=== PATIENT | female | born 1945 | race Caucasian/White ===

== ENCOUNTER 2020-11-13 08:53 | Emergency (ER) | payer OTHER ==
[~2020-11-13] VITALS: Ht 160 cm; Wt 54.4 kg
[2020-11-13 08:53] VITALS: BP_SYST 153
--- NOTE | 2020-11-13 08:53 | NUR ---
Placed in room 8 . Placed on lunchroom monitor, blood pressure machine and pulse oximeter. To gown for exam. Side rails up.
--- NOTE | 2020-11-13 09:00 | NUR ---
PT BIB S/P SLIPPING AND FALLING WHILE WALKING OUTSIDE. FELL AND HIT FOREHEAD ON SIDEWALK. LAC TO FOREHEAD, NO BLEEDING UPON ARRIVAL +BARNES, DENIES KO. PT ARRIVES AAOX4, V/S STABLE
--- NOTE | 2020-11-13 09:15 | NUR ---
ER DR. CABRERA AT THE BEDSIDE EXAMINING PT
--- NOTE | 2020-11-13 09:25 | NUR ---
PORTABLE X-RAY AT THE BEDSIDE
[2020-11-13] MEDS ORDERED: ONDANSETRON 4 MG ODT TAB PO ONE (09:30)
[2020-11-13] MEDS ORDERED: ACETAMINOPHEN 500 MG TABLET PO ONE (09:30)
[2020-11-13] MEDS ORDERED: DIPH-TET-PERTUS Vaccine 0.5 ML VIAL (ADACEL) I.M. ONE (09:30)
--- NOTE | 2020-11-13 09:40 | NUR ---
Patient transported to radiology via WC, accompanied by STAFF.
[2020-11-13] MEDS ORDERED: BACITRACIN 1 GM OINT TP ONE (11:15)
--- NOTE | 2020-11-13 11:45 | NUR ---
Thumb Spica splint applied to LARM. 2+ pulse noted. Capillary refill <2 seconds. Patient has ability to move non-splinted digits. Has sensation present to affected site. Skin color within normal limits. Applied for pain management control.
--- NOTE | 2020-11-13 11:54 | NUR ---
PT UP AND AMBULATING WITHOUT ASSIST, STEADY GAIT, DENIES DIZZINESS, V/S STABLE
[2020-11-13] MEDS ORDERED: ONDA-8 TL (12:09)
[2020-11-13] MEDS ORDERED: SULF1TAB48 PO (12:09)
[2020-11-13 12:20] VITALS: BP_SYST 153
--- NOTE | 2020-11-13 12:22 | NUR ---
Patient given written and verbal discharge instructions and verbalizes understanding. ER MD discussed with patient the results and treatment provided. Patient in stable condition. ID arm band removed. Rx of BACTRIM AND ZOFRAN given. Patient educated on pain management and to follow up with PMD. Pain Scale 0/10. Opportunity for questions provided and answered. Medication side effect fact sheet provided.
== END 2020-11-13 12:22 | disposition home or self-care (01) ==
LOC: SED 08:53
DX: S06.0X0A Concussion without loss of consciousness, initial encounter (principal); S01.81XA Laceration without foreign body of other part of head, initial encounter; S80.211A Abrasion, right knee, initial encounter; S69.82XA Other specified injuries of left wrist, hand and finger(s), initial encounter; Z88.0 Allergy status to penicillin; Z79.899 Other long term (current) drug therapy; W01.198A Fall on same level from slipping, tripping and stumbling with subsequent striking against other object, initial encounter; Y93.89 Activity, other specified; Y92.89 Other specified places as the place of occurrence of the external cause; Y99.8 Other external cause status
CPT/HCPCS: 12013; 70450; 72125; 73140; 76376; 90471; 90715; 99285; Q0162

== ENCOUNTER 2020-11-16 16:22 | Emergency (ER) | payer OTHER ==
[~2020-11-16] VITALS: Ht 160 cm; Wt 54.4 kg
[~2020-11-16 16:22] MED LIST: ONDA-8 TL; SULF1TAB48 PO
[2020-11-16 16:35] VITALS: BP_SYST 143
[2020-11-16 20:51] LABS: BASOPHILS # (AUTO) 0.1 K/uL (0.0-0.2); EOSINOPHILS # (AUTO) 0.1 K/uL (0.0-0.4); EOSINOPHILS % (AUTO) 0.5 % (0.0-4.0)
[2020-11-16 21:07] LABS: BASOPHILS % (AUTO) 0.6 % (0.0-2.0); HEMATOCRIT 38.4 % (36-48); HEMOGLOBIN 12.6 g/dL (12.0-16.0); LYMPHOCYTES # (AUTO) 2.2 K/uL (1.0-5.5); MEAN CORPUSCULAR HEMOGLOBIN 29 pg (27-31); MEAN CORPUSCULAR HGB CONC 33 % (32-36); MEAN CORPUSCULAR VOLUME 88 fL (79.0-98.0); MONOCYTES # (AUTO) 0.7 K/uL (0.0-1.0); MONOCYTES % (AUTO) 5.9 % (1.7-9.3); NEUTROPHILS # (AUTO) 8.5 K/uL (1.8-7.7); PLATELET COUNT (AUTO) 456 K/uL (130-430); RED BLOOD CELL COUNT(AUTO) 4.36 MIL/uL (4.2-6.2); RED CELL DISTRIBUTION WIDTH 13.2 % (9.0-15.0); WHITE BLOOD COUNT (AUTO) 11.5 K/uL (4.8-10.8)
[2020-11-16 21:24] LABS: ANION GAP 8 (5-15); CALCIUM 9.5 mg/dL (8.4-11.0); CHLORIDE 98 mmol/L (98-107); GLUCOSE 115 mg/dL (70-99); POTASSIUM 3.9 mmol/L (3.5-5.1); SODIUM SERUM 132 mmol/L (136-145); UREA NITROGEN, BLOOD 12 mg/dL (8-21)
[2020-11-16 21:29] LABS: ALANINE AMINOTRANSFERASE 21 U/L (12-78); ALBUMIN 3.9 g/dL (3.4-4.8); ASPARTATE AMINOTRANSFERASE 19 U/L (10-37); LIPASE 129 U/L (73-393); TOTAL BILIRUBIN 0.6 mg/dL (0.0-1.0)
[2020-11-16 23:09] LABS: BILIRUBIN,URINE NEGATIVE (NEGATIVE); BLOOD, URINE NEGATIVE (NEGATIVE); CLARITY/URINE CLEAR (CLEAR); COLOR,URINE YELLOW (YELLOW); GLUCOSE,URINE NEGATIVE (NEGATIVE); KETONES,URINE NEGATIVE (NEGATIVE); LEUKOCYTE ESTERASE ,URINE NEGATIVE (NEGATIVE); NITRITE, URINE NEGATIVE (NEGATIVE); PROTEIN URINE NEGATIVE (NEGATIVE); UROBILINOGEN,URINE 0.2 (0.2-1.0)
[2020-11-17 00:24] LABS: FREE T4 (FREE THYROXINE) 1.1 ng/dl (0.8-1.5); THYROID STIMULATING HORMONE 1.16 uIu/mL (0.36-3.74)
[2020-11-17] MEDS ORDERED: METR500T PO (01:29)
[2020-11-17] MEDS ORDERED: POLY119P2 PO (01:29)
[2020-11-17] MEDS ORDERED: BISA10SU61 RC (01:29)
[2020-11-17 01:43] VITALS: BP_SYST 130
== END 2020-11-17 01:43 | disposition home or self-care (01) ==
LOC: SED 16:22
DX: R33.9 Retention of urine, unspecified (principal); K59.00 Constipation, unspecified; K52.89 Other specified noninfective gastroenteritis and colitis; I10 Essential (primary) hypertension; Z88.0 Allergy status to penicillin; Z79.899 Other long term (current) drug therapy
CPT/HCPCS: 36415; 51702; 74177; 76376; 80053; 81003; 83690; 84439; 84443; 85025; 99285; Q9967

== ENCOUNTER 2020-11-22 04:57 | Emergency (ER) | payer OTHER ==
[~2020-11-22] VITALS: Ht 160 cm; Wt 54.4 kg
[~2020-11-22 04:57] MED LIST changes: +BISA10SU61 RC; +METR500T PO; +POLY119P2 PO
[2020-11-22 05:02] VITALS: BP_SYST 156
[2020-11-22 06:30] VITALS: BP_SYST 156
== END 2020-11-22 06:30 | disposition home or self-care (01) ==
LOC: SED 04:57
DX: T83.098A Other mechanical complication of other urinary catheter, initial encounter (principal); I10 Essential (primary) hypertension; Z88.0 Allergy status to penicillin; Z79.899 Other long term (current) drug therapy
CPT/HCPCS: 99281

== ENCOUNTER 2020-11-22 09:31 | Emergency (ER) | payer OTHER ==
[~2020-11-22] VITALS: Ht 160 cm; Wt 54.4 kg
[2020-11-22 09:41] VITALS: BP_SYST 151
[2020-11-22 11:01] VITALS: BP_SYST 151
== END 2020-11-22 11:01 | disposition home or self-care (01) ==
LOC: SED 09:31
DX: T83.021A Displacement of indwelling urethral catheter, initial encounter (principal); R33.9 Retention of urine, unspecified; I10 Essential (primary) hypertension; Z88.0 Allergy status to penicillin; Z79.899 Other long term (current) drug therapy
CPT/HCPCS: 99284